=== PATIENT | female | born 1985 | race Caucasian/White ===

== ENCOUNTER 2019-07-02 05:20 | Inpatient (IN) | payer BC ==
[~2019-07-02] VITALS: Ht 167.6 cm; Wt 67.1 kg
[2019-07-02 05:25] VITALS: Ht 167.6 cm; Wt 67.1 kg
--- NOTE | 2019-07-02 05:35 | NUR ---
PT AAOX4, NO S/S OF DISTRESS NOTED, RESPIRATIONS EVEN AND UNLABORED. PT C/O GEN ABD PAIN X 1 DAY WITH N/V AND DIARRHEA. PT REPORTS VOMITTING 5X AND DESCRIBES IT CLEAR. PT REPORTS PAIN AT CRAMPING AND RATES PAIN 4/10. PT C/O DIZZINESS THAT INCREASES WITH AMBULATION.
[2019-07-02 06:13] LABS: BASOPHIL % 0.9 % (0-2); PLATELET COUNT 344 x10^3mcL (130-400); RED CELL DISTRIBUTION WIDTH 13.1 % (11.5-14.5)
[2019-07-02 06:16] LABS: CALCIUM 7.6 mg/dL (8.5-10.1); CARBON DIOXIDE 23.6 mmol/L (21-32); CHLORIDE SERUM 98 mmol/L (98-107); CREATININE SERUM 0.9 mg/dL (0.6-1.0); GFR1 > 60 mL/min; GLUCOSE SERUM 114 mg/dL (74-106); POTASSIUM SERUM 3.3 mmol/L (3.5-5.1); SODIUM SERUM 137 mmol/L (136-145)
[2019-07-02 06:21] LABS: ALBUMIN 3.3 g/dL (3.4-5.0); ALKALINE PHOSPHATASE 62 U/L (46-116); ALT/SGPT 127 U/L (14-59); AST/SGOT 327 U/L (15-37); BILIRUBIN TOTAL 1.2 mg/dL (0.20-1.00)
--- NOTE | 2019-07-02 07:15 | NUR ---
EKG IN PROGRESS BY [facility]OM EMT
--- NOTE | 2019-07-02 07:15 | NUR ---
REPORT RECEIVED FROM MADISON HYDE. I AM RESUMING CARE OF PT AT THIS TIME
--- NOTE | 2019-07-02 07:17 | NUR ---
PT TO CT AT THIS TIME.
--- NOTE | 2019-07-02 07:26 | NUR ---
pt back from ct with no incident.
--- NOTE | 2019-07-02 07:48 | NUR ---
PT STATES FEELING DRY MOUTH, WET WASHCLOTH PROVIDED PER PTS REQUEST.
--- NOTE | 2019-07-02 07:51 | NUR ---
pt to US VIA W/C AT THIS TIME
--- NOTE | 2019-07-02 08:24 | NUR ---
PT BACK FROM US WITH NO INCIDENT
--- NOTE | 2019-07-02 09:50 | NUR ---
REPORT GIVEN TO LALITHA HYDE RESUMING CARE OF PT IN MED SURG
[2019-07-02] MEDS ORDERED: VALIUM2 MG (09:54)
[2019-07-02] MEDS ORDERED: BENADRYL ALLERG25 M1 (09:55)
--- NOTE | 2019-07-02 10:15 | NUR ---
PT TO MED SURG FLOOR VIA [facility] WITH [facility] EMT IN NO DISTRESS. LALITHA HYDE RESUMING CARE OF PT
[2019-07-02 10:18] LABS: UA SPECIFIC GRAVITY <=1.005 (1.005-1.035); microscopic required? YES; urine erythrocyte 1+ (NEGATIVE)
[2019-07-02 10:28] LABS: AMYLASE 22 U/L (25-115); CHOLESTEROL 147 mg/dL (<200); CHOLESTEROL/HDL RATIO 1.9; HDL CHOLESTEROL 78 mg/dL (40-60); MAGNESIUM 1.8 mg/dL (1.8-2.4); TRIGLYCERIDES 439 mg/dL (<150)
[2019-07-02 10:29] LABS: AMPHETAMINE QUAL UR NONE DETECTED (See below)
--- NOTE | 2019-07-02 10:40 | NUR ---
RECEIVED PATIENT FROM ER VIA GURNEY, PATIENT WAS ABLE TO AMBULATE TO BED WITH NO ASSIST. PATIENT IS A/OX4, DENIES HEADACHE, C/O OCCASIONAL DIZZINESS. NO EDEMA NOTED TO EXTREMITIES X4. DENIES SOB, ON ROOM AIR. LAST BM 07/02/19, PATIENT STATES SHE HAD DIARRHEA, BUT HAS NOT HAD ANY TODAY. EDUCATED PATIENT TO USE CALL LIGHT FOR ANY ASSISTANCE. CALL LIGHT WITHIN REACH, BED IN LOW POSITION, WILL CONTINUE TO MONITOR.
[2019-07-02 13:05] VITALS: BP 135/95
--- NOTE | 2019-07-02 14:12 | NUR ---
PATIENT WAS TAKEN DOWN VIA WHEELCHAIR FOR CAT SCAN. IV TO LAC, SALINE LOCK AT THIS TIME.
--- NOTE | 2019-07-02 14:55 | NUR ---
PATIENT WAS C/O MODERATE PAIN 03/15 TO ABDOMEN, PATIENT STATED SHE HAS TAKEN NORCO BEFORE WITH NO ALLERGIC REACTION. DR. ARREOLA MADE AWARE AND WILL ORDER PAIN MEDICATION. PHARMACY MADE AWARE OF MEDICATION.
--- NOTE | 2019-07-02 15:01 | NUR ---
PATIENT C/O ABDOMINAL PAIN 03/15, MEDICATED PATIENT WITH NORCO PER PROTOCOL (SEE EMAR). PATIENT DENIES ALLERGY TO NORCO AND STATES SHES TAKEN IT BEFORE WITH NO REACTION. PATIENT AWARE TO NOTIFY RN IF REACTION OCCURS. CALL LIGHT WITHIN REACH, BED IN LOW POSITION. WILL CONTINUE TO MONITOR FOR CHANGES.
[2019-07-02 17:29] VITALS: BP 105/70
--- NOTE | 2019-07-02 19:00 | NUR ---
PATIENT RESTING IN BED, NO ACUTE DISTRESS NOTED. PATIENT DENIES PAIN. IV TO LAC CDI & PATENT, NO S/S OF INFECTION. PATIENT DENIES NAUSEA & VOMITTING, CALL LIGHT WITHIN REACH, BED IN LOW POSITION, WILL ENDORSE REPORT TO NIGHT RN.
--- NOTE | 2019-07-02 19:35 | NUR ---
RECEIVED REPORT FROM DAY SHIFT RN. PT RESTING IN BED. AA&O X4. NO SOB ON ROOM AIR. NO C/O N/V/ABD PAIN AT THIS TIME. IV TO LAC, INTACT. SAFETY MEASURES IN PLACE. BED IN LOWEST POSITION. SIDE RAILS UP X2. INSTRUCTED PT TO USE THE CALL LIGHT FOR ASSISTANCE. CALL LIGHT WITHIN REACH.
[2019-07-02 20:40] LABS: BILIRUBIN DIRECT 0.27 mg/dL (0.0-0.2); BILIRUBIN TOTAL 1.1 mg/dL (0.20-1.00)
[2019-07-02 20:58] VITALS: BP 103/67
--- NOTE | 2019-07-03 05:10 | NUR ---
C/O ABD CRAMPING PAIN 04/15. MEDICATED WITH NORCO.
[2019-07-03 05:35] VITALS: BP 106/77
--- NOTE | 2019-07-03 06:51 | NUR ---
PT RESTED IN INTERVALS THROUGHOUT SHIFT. NO SOB NOTED. NO C/O NAUSEA/VOMITING. NO DISTRESS NOTED. SAFETY MEASURES MAINTAINED. ALL NEEDS ATTENDED TO. CALL LIGHT WITHIN REACH. WILL ENDORSE CONTINUITY OF CARE TO DAY SHIFT RN.
[2019-07-03 07:17] LABS: BASOPHIL % 0.7 % (0-2); PLATELET COUNT 280 x10^3mcL (130-400); RED CELL DISTRIBUTION WIDTH 13.6 % (11.5-14.5)
[2019-07-03 07:33] LABS: CALCIUM 7.2 mg/dL (8.5-10.1); CARBON DIOXIDE 23.3 mmol/L (21-32); CHLORIDE SERUM 105 mmol/L (98-107); CREATININE SERUM 0.7 mg/dL (0.6-1.0); GFR1 > 60 mL/min; GLUCOSE SERUM 89 mg/dL (74-106); POTASSIUM SERUM 3.7 mmol/L (3.5-5.1); SODIUM SERUM 141 mmol/L (136-145)
--- NOTE | 2019-07-03 07:49 | NUR ---
RECEIVED PATIENT FROM MARY ELLEN HERNANDEZ. PATIENT SEATED UPRIGHT IN BED. NO COMPLAINTS AT THIS TIME. REVIEWED PLAN OF CARE FOR TODAY INCLUDING MEDICATIONS, PATIENT AWARE. ALSO PATIENT KNOWS TO GIVE STOOL SPECIMEN. WILL AWAIT FOR CARE TEAM AND DR RAGLAND TO COME SPEAK WITH PATIENT. CALL LIGHT IN REACH AT THIS TIME.
[2019-07-03 08:07] LABS: BILIRUBIN DIRECT 0.49 mg/dL (0.0-0.2)
[2019-07-03 08:08] LABS: ALBUMIN 2.8 g/dL (3.4-5.0); TOTAL PROTEIN, SERUM 5.9 g/dL (6.4-8.2)
[2019-07-03 09:25] VITALS: BP 118/79
--- NOTE | 2019-07-03 11:01 | NUR ---
DR DOUGLAS IN TO SPEAK WITH PATIENT. STATES THAT MOST LIKELY SYMPTONS ARISING FROM GASTRITIS AND ALCOHOLIC HEPATITIS. INFORMED AND EMPHASIZED NEED FOR DECREASING ALCOHOL CONSUMPTION. PATIENT UNDERSTANDS AND AGREES. DR DOUGLAS WOULD LIKE TO SEE HOW PATIENT TOLERATES LUNCH AND DINNER TODAY, AND IF TOLERATED D/C HOME TONIGHT. PATIENT SEATED AT BEDSIDE WITH MODERATE ABDOMINAL PAIN, PRN NORCO PO GIVEN. CALL LIGHT IN REACH.
--- NOTE | 2019-07-03 13:16 | NUR ---
PATIENT FOUND STANDING AT BEDSIDE, ABOUT TO USE BR. STATES THAT THE SCHEDULED IV REGLAN MIGHT HAVE CONTRIBUTED TO HER BM. WILL CONTINUE TO MONITOR TOLERANCE TO LUNCH WELL DINNER.
--- NOTE | 2019-07-03 17:41 | NUR ---
PATIENT STANDING AT BEDSIDE. NO COMPLAINTS AT THIS TIME, PATIENT REFUSED SCHEDULED REGLAN SHE EXPERIENCE A BM FROM AFTERNOON DOSAGE. WILL MONITOR PATIENT TOLERANCE WITH DINNER TRAY. IF TOLERATED WILL NOTIFY DR ARREOLA, IF NOT, WILL ENDORSE TO ONCOMING NURSE. AND SON AT BEDSIDE. CALL LIGHT IN REACH.
[2019-07-03 17:51] VITALS: BP 114/83
[2019-07-03 19:30] VITALS: BP 109/83
--- NOTE | 2019-07-03 19:30 | NUR ---
RECEIVED PT AWAKE ALERT AND VERBALLY RESPONSIVE.C/O ABDOMINAL PAIN 6/10 TO CRAMPING,SHARP PAIN .NORCO 5/325 MG PO ADMINISTERED.DENIES DIARRHEA TODAY.NO N/V NOTED.TOLERATED REGULAR DIET FAIRLY.WILL CONTINUE TO MONITOR.
--- NOTE | 2019-07-03 19:36 | NUR ---
REPORT GIVEN TO MARY ELLEN NGUYEN, PATIENT CONTINUES TO HAVE STOMACH PAIN POST DINNER TRAY. ADVISED RN TO CONTACT RESIDENT. CALL LIGHT IN REACH, PRN NORCO PO GIVEN BY MARY ELLEN NGUYEN.
--- NOTE | 2019-07-04 04:38 | NUR ---
PT SLEPT WELL ALL NIGHT.MEDICATED WITH NORCO 5/325 MG PO X1 FOR ABDOMINAL PAIN AND ZOFRAN 4 MG IVP X1 FOR NAUSEA BUT NO VOMITING NOTED.ALL NEEDS MET.WILL CONTINUE TO MONITOR.
[2019-07-04 05:55] VITALS: BP 117/88
--- NOTE | 2019-07-04 07:10 | NUR ---
RECEIVED PT FROM HAND TUFTER RN. Darwin/BREE. MED SURG. DENIES CHEST PAIN/PRESSURE. RESPIRATIONS EQUAL AND UNLABORED ON RA. DENIES SOB. PT STATES "I ATE DINNER LAST NIGHT AND I FELT A LITTLE NAUSEOUS, BUT I FELT OKAY WITH EATING REGULAR FOOD." PT DENIES ANY PAIN AT THIS TIME, SINCE RECEIVING NORCO THIS AM. PT DENIES ANY N/V. IV PATENT AND INFUSING TO LAC. NO REDNESS OR SWELLING NOTED. WILL CONTINUE TO MONITOR. CALL LIGHT IN REACH. BED IN LOWEST POSITION.
[2019-07-04 07:23] LABS: BASOPHIL % 0.7 % (0-2); PLATELET COUNT 278 x10^3mcL (130-400); RED CELL DISTRIBUTION WIDTH 13.2 % (11.5-14.5)
[2019-07-04 07:34] LABS: CALCIUM 7.7 mg/dL (8.5-10.1); CARBON DIOXIDE 26.7 mmol/L (21-32); CHLORIDE SERUM 106 mmol/L (98-107); CREATININE SERUM 0.8 mg/dL (0.6-1.0); GFR1 > 60 mL/min; GLUCOSE SERUM 90 mg/dL (74-106); POTASSIUM SERUM 3.6 mmol/L (3.5-5.1); SODIUM SERUM 143 mmol/L (136-145)
--- NOTE | 2019-07-04 07:36 | NUR ---
SPOKE WITH DR. ARREOLA REGARDING PT STATUS. PER DR. ARREOLA POSSIBLE D/C TODAY.
--- NOTE | 2019-07-04 08:50 | NUR ---
PT IN BED RESTING. NO ACUTE RESP DISTRESS NOTED ON RA. PT DENIES ANY SOB AT THIS TIME. PT STATES PAIN TO ABDOMEN IS 5/10 SHARP AND INCREASING. WILL MEDICATED PER EMAR. GIVEN PO MEDS. TOLERATED WELL. PT STATES SHE WAS ABLE TO EAT BREAKFAST WITHOUT ANY N/V. WILL CONTINUE TO MONITOR. CALL LIGHT IN REACH. BED IN LOWEST POSITION.
[2019-07-04] MEDS ORDERED: METOCLOPRAMIDE H5 M2 PO (09:18)
[2019-07-04 09:21] VITALS: BP 106/74
--- NOTE | 2019-07-04 10:12 | NUR ---
PT STATES LACO HAS HELPED WITH PAIN. PT AWARE OF PLAN TO D/C HOME TODAY. PT OKAY WITH BEING DISCHARGED. PT ASKING FOR PRESCRIPTION FOR PAIN MEDICATION. DR. ARREOLA MADE AWARE, PER DR. ARREOLA WILL DEPEND ON DR. SALAZAR.
[2019-07-04] MEDS ORDERED: NORCO1 TA2 PO (11:18)
[2019-07-04 11:32] VITALS: BP 106/74
--- NOTE | 2019-07-04 12:15 | NUR ---
PT GIVEN DISCHARGE INSTRUCTIONS. PT ENCOURAGED TO RETURN TO ER OF ANY WORSENING SYMPTOMS OF SOB, FEVER, SEVERE PAIN, UNRELIEVED N/V. PT VERBALIZED UNDERSTANDING. PT INFORMED APPOINTMENT WITH PCP WAS UNABLE TO BE MADE BY CASE MANAGEMENT. PT ENCOURAGED TO SCHEDULE FOLLOW UP APPOINTMENT. PT STATES "I WILL SET UP AND APPOINTMENT WITH MY PRIMARY DOCTOR AND MY GI DOCTOR." PT GIVEN PRESCRIPTION FOR NORCO AND METOCLOPRAMIDE AND EDUCATED ON USE. PT VERBALIZED UNDERSTANDING. PT EDUCATED ON RECOMMENDED DIET FOR IBS AND WHAT FOODS TO AVOID. PT VERBALIZED UNDERSTANDING. PT ENCOURAGED TO TAKE DISCHARGE PACKET TO PCP APPOINTMENT. ALL QUESTIONS AND CONCERNS ADDRESSED. IV TO LAC REMOVED CATHETER INTACT. NO REDNESS OR SWELLING NOTED. PT WALKED OFF FLOOR BY PARALEGALS. NO PROBLEMS ENCOUNTERED.
== END 2019-07-04 13:05 | disposition home or self-care (01) | DRG 392 ==
LOC: ED 05:20 → MU 09:32
PROVIDERS: ADMIT Internal Medicine
DX: K29.20 Alcoholic gastritis without bleeding (principal); F41.1 Generalized anxiety disorder; R74.0 Nonspecific elevation of levels of transaminase and lactic acid dehydrogenase [LDH]; K70.30 Alcoholic cirrhosis of liver without ascites; E78.1 Pure hyperglyceridemia; K57.30 Diverticulosis of large intestine without perforation or abscess without bleeding; K70.10 Alcoholic hepatitis without ascites; E78.5 Hyperlipidemia, unspecified; E83.51 Hypocalcemia; E87.6 Hypokalemia; Z88.5 Allergy status to narcotic agent; Z88.6 Allergy status to analgesic agent; Z88.8 Allergy status to other drugs, medicaments and biological substances; Z90.49 Acquired absence of other specified parts of digestive tract; Z87.891 Personal history of nicotine dependence; Z71.41 Alcohol abuse counseling and surveillance of alcoholic; Z79.899 Other long term (current) drug therapy
CPT/HCPCS: 87046; 87046-59; G0378; G0480; J2270; J2405; J2765; J3490; J7030; Q0092; Q9966; Q9967